=== PATIENT | male | born 1985 | race Caucasian/White ===

== ENCOUNTER 2022-08-14 18:26 | Emergency (ER) | payer OTHER ==
--- NOTE | 2022-08-14 19:56 | Ultrasound Report ---
PROCEDURE: Duplex Ext Veins Right INDICATIONS: Concerned for clot, Right thigh pain and numbness TECHNIQUE: Real-time imaging, as well as color and pulse Doppler interrogation, were performed of the lower extr emity deep veins from the inguinal ligament to the popliteal fossa. COMPARISON: None. FINDINGS: The deep veins are normally compressible, and free of intraluminal thrombus. Color and pu lse Doppler demonstrate normal phasic intraluminal flow. There is normal augmentation response to di stal compression maneuver. IMPRESSION: No sonographic evidence of deep venous thrombosis in the right lower extremity. Reviewed by: Duy Dudley MD on 08/14/2022 7:55 PM PDT Approved by: Duy Dudley MD on 08/14/2022 7:55 PM PDT Station ID: [id number]
[2022-08-14 20:14] LABS: BASOPHILS # (AUTO) 0.1 10^3/uL (0.0-0.1); BASOPHILS % (AUTO) 1.3 %; HCT - HEMATOCRIT 46.3 % (42.0-52.0); HGB - HEMOGLOBIN 15.6 g/dL (14.0-18.0); LYMPHOCYTES # (AUTO) 1.8 10^3/uL (1.5-3.5); LYMPHOCYTES % (AUTO) 45.1 %; MEAN CORPUSCULAR HGB CONC 33.7 g/dL (32.0-36.0); MEAN CORPUSCULAR VOLUME 100.9 fL (80.0-94.0); MEAN PLATELET VOLUME 8.4 fL (7.4-11.4); MONOCYTES # (AUTO) 0.3 10^3/uL (0.0-1.0); MONOCYTES % (AUTO) 8.2 %; NEUTROPHILS # (AUTO) 1.7 10^3/uL (1.5-6.6); NEUTROPHILS % (AUTO) 44.1 %; PLT - PLATELET COUNT 234 10^3/uL (130-450); RED BLOOD COUNT 4.59 10^6/uL (4.70-6.10); RED CELL DISTRIBUTION WIDTH 12.9 % (12.0-15.0); WHITE BLOOD COUNT 3.9 x10^3/uL (4.8-10.8)
[2022-08-14 20:31] LABS: ALBUMIN 4.5 g/dL (3.2-5.5); ALBUMIN/GLOBULIN RATIO 1.4 (1.0-2.2); ALKALINE PHOSPHATASE 63 IU/L (42-121); ALT ALANINE AMINOTRANSFERASE 202 IU/L (10-60); AST ASPARTATE AMINOTRANSFERASE 158 IU/L (10-42); BILIRUBIN,TOTAL 0.5 mg/dL (0.2-1.0); BUN - BLOOD UREA NITROGEN 8 mg/dL (6-20); CALCIUM 8.8 mg/dL (8.5-10.3); CARBON DIOXIDE - CO2 28 mmol/L (21-32); CHLORIDE 106 mmol/L (101-111); CK- CREATINE KINASE 266 IU/L (22-269); CREATININE 0.8 mg/dL (0.6-1.2); CRP - C-REACTIVE PROTEIN < 1.0 mg/dL (0-1.0); GFR - MDRD 108 (>89); GLUCOSE 97 mg/dL (70-100); POTASSIUM 3.8 mmol/L (3.5-5.0); SODIUM 145 mmol/L (135-145); TOTAL PROTEIN 7.8 g/dL (6.7-8.2)
--- NOTE | 2022-08-14 20:48 | XRAY Report ---
PROCEDURE: Femur 2V RT INDICATIONS: R thigh pain TECHNIQUE: 4 views of the femur were acquired. COMPARISON: None. FINDINGS: Bones: No fractures or dislocations. No suspicious bony lesions. Soft tissues: No suspicious soft tissue calcifications or masses. IMPRESSION: 1. No acute bony abnormality. Reviewed by: Jeffrey Conrad MD on 08/14/2022 8:47 PM PDT Approved by: Jeffrey Conrad MD on 08/14/2022 8:47 PM PDT Station ID: [id number]
[2022-08-14] MEDS ORDERED: KETOROLAC 60 MG/2 ML VIAL IM STA (21:26)
[2022-08-14] MEDS ORDERED: DEXAMETHASONE 10 MG/ML VIAL PO STA (21:26)
--- NOTE | 2022-08-14 21:29 | ED Physician Documentation ---
History of Present Illness - Stated complaint Stated Complaint: BLOOD CLOT? 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 He complains of 1 to 2 weeks of right anterior/medial thigh pain/numbness. Nothing seems to make it better or worse. No swelling. No skin changes. He denies any back pain. No loss of bowel or bladder control. Does not use any IV drugs. No fever. No trauma. Nothing seems to make it better or worse. Patient states there is a family histo ry of blood clots and he is concerned about DVT Review of Systems Constitutional: denies: Fever, Chills GI: denies: Vomiting, Diarrhea : denies: Incontinent Skin: denies: Rash PD PAST MEDICAL HISTORY - Past Medical History Past Medical History: No - Past Surgical History Past Surgical History: No - Present Medications Home Medications: Ambulatory Orders Medication Instructions Recorded Confirmed No Known Home Medications 08/14/22 08/14/22 - Allergies Allergies/Adverse Reactions: Allergies Allergy/AdvReac Type Severity Reaction Status Date / Time hydrocodone AdvReac Itching Verified 08/14/22 18:32 - Living Situation Living Arrangement: reports: At home - Social History Does the pt have substance abuse?: No PD ED PE NORMAL - Vitals Vital signs reviewed: Yes - General General: Alert and oriented X 3, No acute distress - HEENT HEENT: Moist mucous membranes - Neck Neck: Supple, no meningeal sign - Cardiac Cardiac: RRR - Respiratory Respiratory: No respiratory distress, Clear bilaterally - Abdomen Abdomen: Soft, Non tender, Non distended - Back Back: No spinal TTP (No midline tenderness to palpation or percussion. No step- off or deformity) - Derm Derm: Warm and dry - Extremities Extremities: Other (Right leg - There is decrease sensation over the anterior aspect of the mid thigh. No skin changes. No deformity. Full range of motion of the hip and knee without pain.) - Neuro Neuro: Alert and oriented X 3 Results - Vitals Vitals: Vital Signs - 24 hr 08/14/22 08/14/22 08/14/22 18:28 20:52 21:47 Temperature 36.7 C 36.9 C Heart Rate 104 H 80 80 Respiratory 16 13 16 Rate Blood Pressure 161/113 H 129/89 H 142/90 H O2 Saturation 97 96 100 Oxygen O2 Source Room air - Labs Labs: Laboratory Tests 08/14/22 08/14/22 08/14/22 20:10 20:10 20:10 WBC 3.9 L RBC 4.59 L Hgb 15.6 Hct 46.3 MCV 100.9 H MCH 34.0 H MCHC 33.7 RDW 12.9 Plt Count 234 MPV 8.4 Neut # (Auto) 1.7 Lymph # (Auto) 1.8 [place] # (Auto) 0.3 Eos # (Auto) 0.0 Baso # (Auto) 0.1 Absolute Nucleated RBC 0.00 Nucleated RBC % 0.0 ESR 2 Sodium 145 Potassium 3.8 Chloride 106 Carbon Dioxide 28 Anion Gap 11.0 BUN 8 Creatinine 0.8 Estimated GFR (MDRD) 108 Glucose 97 Calcium 8.8 Total Bilirubin 0.5 AST 158 H ALT 202 H Alkaline Phosphatase 63 Total Creatine Kinase 266 C-Reactive Protein < 1.0 Total Protein 7.8 Albumin 4.5 Globulin 3.3 Albumin/Globulin Ratio 1.4 - Rads (name of study) Right lower extremity ultrasound Relevant Findings:: Final report received, See rad report Right femur x-ray Relevant Findings:: Final report received, See rad report PD Medical Decision Making - ED course Complexity details: reviewed results, re-evaluated patient, considered differential, d/w patient ED course: Unclear etiology of the patient's symptoms. No acute findings on duplex ultrasound or a right femur x-ray. CBC, chemistries and inflammatory markers, sed rate, CRP are negative. CK is normal. Does have mild elevation of his AST/ALT. He will follow-up with his doctor regarding this. I suspect that his symptoms are likely due to sciatica. Given a dose of Toradol and dexamethasone here. 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 We will have him follow-up with his PCM and likely obtain an MRI of the lumbar spine. No evidence of cauda equina, epidural abscess. Patient counseled regarding signs and symptoms for which I believe and urgent re-evaluation would be necessary. Patient with good understanding of and agreement to plan and is comfortable going home at this time This document was made in part using voice recognition software. While efforts are made to proofread this document, sound alike and grammatical errors may occur. Patient is able to ambulate here. No indication for emergent MRI at this time Departure - Departure Disposition: 01 Home, Self Care Clinical Impression: Paresthesia and pain of right extremity, LFT elevation Condition: Good Instructions: ED Sciatica, ED Paraesthesias Follow-Up: URSULA ZAVALA, [Primary Care Provider] - Within 3 Days Comments: [place] 3 days. Your ultrasound, x-ray and lab work are all normal today. Your inflammatory markers are negative. Your muscle breakdown test, creatine kinase, is normal. You do have a mild elevation of your liver function test, AST/ALT. This can be followed up with your doctor. Your symptoms seem to be consistent with nerve pain, this is likely coming from your sciatic nerve. Recommend that you have an MRI of your lumbar spine with your doctor. Please return if you worsen. You were given a dose of Toradol and dexamethasone tonight Discharge Date/Time: 08/14/22 21:47
[2022-08-14 21:49] VITALS: BP 142/90
== END 2022-08-14 21:47 | disposition home or self-care (01) ==
LOC: ED 18:26
DX: R20.2 Paresthesia of skin (principal); R74.01 Elevation of levels of liver transaminase levels
CPT/HCPCS: 36415; 80053; 82550; 85025; 85651; 86140; 96372; 99284

== ENCOUNTER 2023-01-28 13:39 | Outpatient (CLI) | payer OTHER | END 2023-01-28 23:59 | disposition critical access hospital (66) | LOC: EMS 13:39 | DX: R20.0 Anesthesia of skin (principal); R05.9 Cough, unspecified; R00.0 Tachycardia, unspecified | CPT/HCPCS: A0425; A0429 ==

== ENCOUNTER 2023-01-28 13:57 | Emergency (ER) | payer OTHER ==
[2023-01-28] MEDS ORDERED: predniSONE 20 MG TABLET PO STA (14:20)
--- NOTE | 2023-01-28 14:23 | ED Physician Documentation ---
History of Present Illness - Stated complaint Stated Complaint: RT LEG NUMBNESS - Chief complaint Chief Complaint: Ext Problem - History obtained from History obtained from: Patient - History of Present Illness Pain level max: 5 Pain level now: 5 - Additonal information Additional information: Patient is a 37-year-old male who presents to the emergency department stating that for about the past month he has had numbness in the right leg, he states it starts on the outside of the leg, wraps around to the front and ends at his great toe. He is also complaining of some right-sided low back pain as well. No loss of bowel or bladder control. 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 He states that his PCM told him to "rest". He states he has not had any imaging performed or other studies performed. No fevers. No chills. No swelling. Review of Systems Constitutional: denies: Fever, Chills Respiratory: denies: Cough GI: denies: Vomiting, Constipation, Diarrhea : denies: Unable to Void, Incontinent Skin: denies: Rash Musculoskeletal: denies: Neck pain PD PAST MEDICAL HISTORY - Past Medical History Past Medical History: No - Past Surgical History Past Surgical History: No - Present Medications Home Medications: Ambulatory Orders Medication Instructions Recorded Confirmed Meloxicam [Mobic] 7.5 mg PO BID PRN #20 tablet 01/28/23 methylPREDNISolone [Medrol] 4 mg PO DAILY #1 tab 01/28/23 - Allergies Allergies/Adverse Reactions: Allergies Allergy/AdvReac Type Severity Reaction Status Date / Time hydrocodone AdvReac Itching Verified 01/28/23 14:08 - Social History Does the pt have substance abuse?: No PD ED PE NORMAL - Vitals Vital signs reviewed: Yes - General General: Alert and oriented X 3, No acute distress - HEENT HEENT: PERRL, Moist mucous membranes - Neck Neck: Supple, no meningeal sign - Cardiac Cardiac: RRR, Strong equal pulses - Respiratory Respiratory: No respiratory distress, Clear bilaterally - Abdomen Abdomen: Soft, Non tender, Non distended - Back Back: No spinal TTP (No midline tenderness to palpation or percussion. No step- off or deformity.) - Derm Derm: Warm and dry - Extremities Extremities: Other (Patient has decreased sensation in the L4-L5 dermatomes of the R leg. Otherwise there is normal sensation throughout the leg.) - Neuro Neuro: Alert and oriented X 3, No motor deficit, Other (Normal bilateral lower extremity patellar and ankle jerk reflexes. Normal great toe extension bilaterally. no saddle anesthesia) - Psych Psych: Normal mood, Normal affect Results - Vitals Vitals: Vital Signs - 24 hr 01/28/23 01/28/23 14:03 14:32 Temperature 37.0 C Heart Rate 108 H 91 Respiratory 18 15 Rate Blood Pressure 162/113 H 155/99 H O2 Saturation 95 98 Oxygen O2 Source Room air PD Medical Decision Making - ED course Complexity details: considered differential (No cauda equina, no spinal epidural abscess, no fracture, no aortic dissection or evidence of aneursym rupture), d/w patient ED course: 37-year-old male with mild right-sided back pain ongoing for the past month. 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 He is complaining of numbness in the L4-L5 dermatome of the right leg. The leg is otherwise neurovascularly intact and does not have any decrease sensation. This is consistent with a likely herniated disc that is causing impingement of the nerve root. MRI is not available here today. No evidence of cauda equina, epidural abscess. No indication for emergent neuroimaging. Will place on steroids and anti-inflammatories for home. We will [place] and further care. Patient counseled regarding signs and symptoms for which I believe and urgent re-evaluation would be necessary. Patient with good understanding of and agreement to plan and is comfortable going home at this time This document was made in part using voice recognition software. While efforts are made to proofread this document, sound alike and grammatical errors may occur. Departure - Departure Disposition: 01 Home, Self Care Clinical Impression: Lumbar radiculopathy Condition: Good Instructions: ED Sciatica Follow-Up: OLGA Mathew [Provider Group] - Within 1 week Prescriptions: methylPREDNISolone [Medrol] 4 mg PO DAILY #1 tab Meloxicam [Mobic] 7.5 mg PO BID PRN #20 tablet PRN Reason: Pain Comments: You have decreased sensation in the L4-L5 dermatome over your right leg. This is likely due to a pinched nerve in your back. You likely have a herniated disc irritating the nerve. There is recommended that you have a lumbar spine MRI [place]. We will place you on steroids to decrease the inflammation, this should help with the numbness. After the MRI, your PCM may want to refer you to physical therapy or to a information assurance specialist for further care. Your prescriptions were sent to the [facility] pharmacy. Forms: PCP List Discharge Date/Time: 01/28/23 14:32
[2023-01-28 14:32] VITALS: BP 155/99; O2SAT 98
== END 2023-01-28 14:32 | disposition home or self-care (01) ==
LOC: EDUNIT# → ED 13:57
DX: M54.16 Radiculopathy, lumbar region (principal)
CPT/HCPCS: 99283; J7512

== ENCOUNTER 2023-06-11 14:30 | Outpatient (CLI) | payer OTHER ==
[2023-06-11 18:43] LABS: BASOPHILS % (AUTO) 0.5 %; HCT - HEMATOCRIT 44.3 % (42.0-52.0); HGB - HEMOGLOBIN 15.6 g/dL (14.0-18.0); LYMPHOCYTES # (AUTO) 0.7 10^3/uL (1.5-3.5); LYMPHOCYTES % (AUTO) 9.3 %; MEAN CORPUSCULAR HEMOGLOBIN 35.1 pg (27.0-31.0); MEAN CORPUSCULAR HGB CONC 35.2 g/dL (32.0-36.0); MEAN CORPUSCULAR VOLUME 99.6 fL (80.0-94.0); MEAN PLATELET VOLUME 9.4 fL (7.4-11.4); MONOCYTES # (AUTO) 0.7 10^3/uL (0.0-1.0); MONOCYTES % (AUTO) 8.3 %; NEUTROPHILS # (AUTO) 6.4 10^3/uL (1.5-6.6); NEUTROPHILS % (AUTO) 81.6 %; PLT - PLATELET COUNT 358 10^3/uL (130-450); RED BLOOD COUNT 4.45 10^6/uL (4.70-6.10); WHITE BLOOD COUNT 7.8 x10^3/uL (4.8-10.8)
[2023-06-11 19:25] LABS: BILIRUBIN,URINE MODERATE (NEGATIVE); GLUCOSE, URINE (UA) NEGATIVE (NEGATIVE); KETONES,URINE (UA) 40 mg/dL (NEGATIVE); LEUKOCYTE ESTERASE, URINE NEGATIVE (NEGATIVE); NITRITE,URINE NEGATIVE (NEGATIVE); OCCULT BLOOD,URINE NEGATIVE (NEGATIVE); PROTEIN,URINE 100 mg/dL (NEGATIVE); UROBILINOGEN,URINE 0.2 (NORMAL) E.U./dL (NORMAL)
[2023-06-11 19:49] LABS: ALBUMIN 4.8 g/dL (3.2-5.5); ALBUMIN/GLOBULIN RATIO 1.3 (1.0-2.2); BILIRUBIN,TOTAL 1.7 mg/dL (0.2-1.0); CALCIUM 10.6 mg/dL (8.5-10.3); CREATININE 0.7 mg/dL (0.6-1.3); POTASSIUM 4.6 mmol/L (3.5-4.5); TOTAL PROTEIN 8.4 g/dL (6.4-8.9)
[2023-06-11 19:56] LABS: CLARITY,URINE HAZY (CLEAR)
[2023-06-11 20:21] LABS: RBC,URINE 0-5 /HPF (0-5); WBC,URINE 0-3 /HPF (0-3)
[2023-06-11 20:22] LABS: BACTERIA,URINE Few /HPF (None Seen); SQUAMOUS EPITHELIAL CELL,UR NONE SEEN (<= Few)
== END 2023-06-11 14:45 | disposition home or self-care (01) ==
LOC: LAB.N 14:30
PROVIDERS: ATTEND Specialist
DX: R10.9 Unspecified abdominal pain (principal)
CPT/HCPCS: 36415; 80053; 81001; 82150; 83690; 85025; 87086

== ENCOUNTER 2023-06-14 14:58 | Outpatient (CLI) | payer OTHER ==
[2023-06-14 18:04] LABS: ALBUMIN 4.5 g/dL (3.2-5.5); ALBUMIN/GLOBULIN RATIO 1.5 (1.0-2.2); BILIRUBIN,TOTAL 0.7 mg/dL (0.2-1.0); CALCIUM 9.8 mg/dL (8.5-10.3); CREATININE 0.7 mg/dL (0.6-1.3); POTASSIUM 3.8 mmol/L (3.5-4.5); TOTAL PROTEIN 7.6 g/dL (6.4-8.9)
[2023-06-15 03:09] LABS: HBsAG SCREEN Negative (Negative); HCV AB Non Reactive (Non Reactive); HEPATITIS B CORE IGM AB Negative (Negative)
== END 2023-06-14 14:59 | disposition home or self-care (01) ==
LOC: LAB.N 14:58
PROVIDERS: ATTEND Family Medicine
DX: R79.89 Other specified abnormal findings of blood chemistry (principal)
CPT/HCPCS: 36415; 80053; 80074

== ENCOUNTER 2023-06-17 13:15 | Outpatient (CLI) | payer OTHER ==
[2023-06-17 18:14] LABS: BASOPHILS % (AUTO) 0.6 %; EOSINOPHILS # (AUTO) 0.1 10^3/uL (0.0-0.7); EOSINOPHILS % (AUTO) 0.8 %; HGB - HEMOGLOBIN 14.3 g/dL (14.0-18.0); LYMPHOCYTES % (AUTO) 15.2 %; MEAN CORPUSCULAR HEMOGLOBIN 33.5 pg (27.0-31.0); MEAN CORPUSCULAR HGB CONC 31.8 g/dL (32.0-36.0); MEAN CORPUSCULAR VOLUME 105.4 fL (80.0-94.0); MEAN PLATELET VOLUME 9.7 fL (7.4-11.4); MONOCYTES # (AUTO) 0.8 10^3/uL (0.0-1.0); MONOCYTES % (AUTO) 12.3 %; NEUTROPHILS # (AUTO) 4.6 10^3/uL (1.5-6.6); NEUTROPHILS % (AUTO) 70.8 %; PLT - PLATELET COUNT 288 10^3/uL (130-450); RED BLOOD COUNT 4.27 10^6/uL (4.70-6.10); RED CELL DISTRIBUTION WIDTH 12.2 % (12.0-15.0); WHITE BLOOD COUNT 6.5 x10^3/uL (4.8-10.8)
[2023-06-17 18:36] LABS: ALBUMIN 4.5 g/dL (3.2-5.5); ALBUMIN/GLOBULIN RATIO 1.2 (1.0-2.2); BILIRUBIN,TOTAL 0.7 mg/dL (0.2-1.0); CALCIUM 9.9 mg/dL (8.5-10.3); CREATININE 0.6 mg/dL (0.6-1.3); POTASSIUM 4.3 mmol/L (3.5-4.5); TOTAL PROTEIN 8.2 g/dL (6.4-8.9)
== END 2023-06-17 13:30 | disposition home or self-care (01) ==
LOC: LAB.N 13:15
PROVIDERS: ATTEND Physician Assistant
DX: R79.89 Other specified abnormal findings of blood chemistry (principal)
CPT/HCPCS: 36415; 80053; 83690; 85025

== ENCOUNTER 2023-08-27 07:54 | Outpatient (CLI) | payer OTHER ==
--- NOTE | 2023-08-27 11:31 | MRI Report ---
PROCEDURE: Cervical Spine WO INDICATIONS: L SIDED RADICULOPATHY TECHNIQUE: Noncontrast sagittal T1 spin echo and T2 fast spin echo, sagittal STIR, foraminal oblique sagittal T2 fast spin echo, and axial gradient echo or T2 fast spin echo through the cervical spine. COMPARISON: None. FINDINGS: Image quality: Excellent. Alignment and Curvature: Trace retrolisthesis of C4 on C5. Bone Marrow: Marrow demonstrates normal overall signal. Spinal Cord: Visualized spinal cord has normal size and signal. No cerebellar tonsillar herniation. Paraspinous Soft Tissues: No paravertebral masses. Prevertebral soft tissues are normal in thicknes s. C2-C3: No canal stenosis or foraminal stenosis. C3-C4: Disc bulge without canal stenosis. Bilateral mild uncovertebral joint hypertrophy. No signif icant foraminal narrowing. C4-C5: Disc bulge. No canal stenosis. No significant foraminal stenosis. C5-C6: There is mild disc height loss. There is diffuse posterior disc plus osteophyte with prominen t bilateral uncovertebral joint hypertrophy. Prominent right foraminal osteophyte off the uncovertebr al joint results in severe right foraminal narrowing and right foraminal C6 nerve root impingement. T here is moderate left foraminal narrowing with flattening deformity on the exiting left C6 nerve root . C6-C7: Disc bulge. No canal stenosis. Left uncovertebral joint hypertrophy. Mild to moderate left fo raminal stenosis. C7-T1: Diffuse disc bulge. No canal stenosis. No foraminal stenosis. IMPRESSION: 1. There are multilevel disc bulges and there is multilevel uncovertebral joint hypertrophy. 2. No central canal stenosis. 3. At C5-C6, there is severe right foraminal narrowing and moderate left foraminal narrowing. There i s mild to moderate left foraminal narrowing at C6-C7. Reviewed by: Niraj Stratton MD on 08/27/2023 11:29 AM PDT Approved by: Niraj Stratton MD on 08/27/2023 11:29 AM PDT Station ID: [id number]
== END 2023-08-27 07:55 | disposition home or self-care (01) ==
LOC: DI 07:54
PROVIDERS: ATTEND General Practice
DX: M50.11 Cervical disc disorder with radiculopathy, high cervical region (principal); M48.02 Spinal stenosis, cervical region; M47.22 Other spondylosis with radiculopathy, cervical region

== ENCOUNTER 2023-08-30 19:19 | Outpatient (CLI) | payer OTHER | END 2023-08-30 23:59 | disposition critical access hospital (66) | LOC: EMS 19:19 | DX: M25.512 Pain in left shoulder (principal); R20.0 Anesthesia of skin | CPT/HCPCS: A0425; A0429 ==

== ENCOUNTER 2023-08-30 19:41 | Emergency (ER) | payer OTHER ==
--- NOTE | 2023-08-30 19:49 | ED Physician Documentation ---
PD HPI UPPER EXT INJURY - Stated complaint Stated Complaint: L SHOULDER PX - Chief complaint Chief Complaint: Ext Problem - Additonal information Additional information: 38 year old male presents to the ER via ambulance for left shoulder pain. Pt injured shoulder about a month ago cleaning his garage, he thinks he may have dislocated it and then it self reduced. He had an MRI this week and it showed cervical impingement and the plan is to do steroid injections. Whoever gave him the results informed him if the pain gets out of hand to present to ER for pain control. Pt denies any new injury to shoulder but feels like the pain at his ho me became so severe that he was unable to bare it anymore. PD PAST MEDICAL HISTORY - Past Surgical History Past Surgical History: No - Present Medications Home Medications: Ambulatory Orders Medication Instructions Recorded Confirmed Meloxicam [Mobic] 7.5 mg PO BID PRN #20 tablet 01/28/23 methylPREDNISolone [Medrol] 4 mg PO DAILY #1 tab 01/28/23 - Allergies Allergies/Adverse Reactions: Allergies Allergy/AdvReac Type Severity Reaction Status Date / Time hydrocodone AdvReac Itching Verified 08/30/23 19:53 - Social History Does the pt have substance abuse?: No PD ED PE NORMAL - Vitals Vital signs reviewed: Yes - General General: Alert and oriented X 3, No acute distress, Well developed/nourished - HEENT HEENT: Atraumatic - Neck Neck: No bony TTP, No adenopathy - Respiratory Respiratory: No respiratory distress, Clear bilaterally - Back Back: No spinal TTP - Derm Derm: Normal color, Warm and dry, No rash - Extremities Extremities: No deformity, No edema, Other (limited ROM to left shoulder d/t tenderness) Results - Vitals Vitals: Vital Signs - 24 hr 08/30/23 19:40 Temperature 36.2 C L Heart Rate 113 H Respiratory 18 Rate Blood Pressure 155/101 H O2 Saturation 98 Oxygen O2 Source Room air PD Medical Decision Making - ED course ED course: Patient presents with severe left shoulder pain. Because MRI has just been completed he has had no injury or trauma since then I decided to hold off on any imaging although it was considered. Patient received 1 dose of IV and ketorolac and 4 mg of tizanidine and symptoms had completely resolved. Patient said that he was not experiencing any pain and was feeling quite loopy. He had his father with him who drove him home. Patient was asked if he wanted a prescription outpatient and he said no he did not want any additional medicat ions that he had follow-up with his primary care provider. Patient said that he did not want to be here any longer for further workup and wanted to just be at home in the comfort of his bed. He is safe for discharge at this time. I took the time to answer all questions to him as well as his father. Departure - Departure Disposition: Home, Self Care Clinical Impression: Left shoulder pain Qualifiers: Chronicity: acute Qualified Code(s): M25.512 - Pain in left shoulder Condition: Stable Instructions: Shoulder Probs Comments: Thank you for trusting us with your care. We have given you a one-time dose of muscle relaxer called tizanidine. You seem to be in significant improvement of pain. We also gave you a one-time dose of Toradol injection. I would alternate between Tylenol ibuprofen for pain and discomfort of your left shoulder and follow-up with your primary care provider for any prescriptions outpatient that could be warranted. We offered you a prescription here but you declined. Forms: PCP List Discharge Date/Time: 08/30/23 21:04
[2023-08-30 20:00] VITALS: BP 155/101; O2SAT 98
[2023-08-30] MEDS: KETOROLAC 30 MG/ML VIAL IVP STA (20:27)
[2023-08-30] MEDS: tiZANidine 4 MG TABLET PO STA (20:27)
== END 2023-08-30 21:04 | disposition home or self-care (01) ==
LOC: EDUNIT# → EDBD → ED 19:41
DX: M25.512 Pain in left shoulder (principal)
CPT/HCPCS: 96374; 99283; A9270

== ENCOUNTER 2023-08-31 19:32 | Outpatient (CLI) | payer OTHER | END 2023-08-31 23:59 | disposition critical access hospital (66) | LOC: EMS 19:32 | DX: M25.512 Pain in left shoulder (principal); M79.602 Pain in left arm | CPT/HCPCS: A0425; A0429 ==

== ENCOUNTER 2023-08-31 19:51 | Emergency (ER) | payer OTHER ==
[2023-08-31] MEDS: IBUPROFEN 600 MG TABLET PO STA (20:20)
[2023-08-31] MEDS: ACETAMINOPHEN 325 MG TABLET PO STA (20:20)
--- NOTE | 2023-08-31 20:21 | ED Physician Documentation ---
PD HPI UPPER EXT INJURY - Stated complaint Stated Complaint: L SHOULDER PX - Chief complaint Chief Complaint: Ext Problem - Additonal information Additional information: 38-year-old male presents back to the emergency department via EMS for left shoulder pain. Patient was seen and evaluated here yesterday in the emergency department for same complaint also brought in by EMS as well. Per EMS patient was standing outside with a jacket on waiting for ambulance to bring him into the emergency department. EMS asked him why he was not able to drive himself and then he said that he was having pain in his left shoulder prohibiting him from driving. Yesterday prior to discharge patient was seen ambulating in hallway and appeared confused he said that his pain had fully resolved and he wanted to discharge home. He was offered an outpatient prescription to help with pain management and he declined and said he just wanted to leave and was brought home with his neighbor. Today are patient reports similar left shoulder pain I asked him if he is taking anything at home for this and he says no because sometimes naproxen makes his stomach feel upset. 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 PD PAST MEDICAL HISTORY - Past Medical History Musculoskeletal: Other - Past Surgical History Past Surgical History: No Ortho: ACL reconstruction, Other - Present Medications Home Medications: Ambulatory Orders Medication Instructions Recorded Confirmed No Known Home Medications 08/31/23 08/31/23 - Allergies Allergies/Adverse Reactions: Allergies Allergy/AdvReac Type Severity Reaction Status Date / Time hydrocodone AdvReac Itching Verified 08/31/23 20:02 - Social History Does the pt smoke?: No Smoking Status: Never smoker Does the pt drink ETOH?: No Does the pt have substance abuse?: No - Immunizations Immunizations are current?: Yes - POLST Patient has POLST: No PD ED PE NORMAL - Vitals Vital signs reviewed: Yes - General General: Alert and oriented X 3, No acute distress, Well developed/nourished - HEENT HEENT: Atraumatic - Neck Neck: Supple, no meningeal sign, No bony TTP - Back Back: No spinal TTP - Derm Derm: Other (flushed face) - Extremities Extremities: No deformity, No edema (Left shoulder tenderness with palpation to anterior region.), Other - Psych Psych: Other (poor eye contact) Results - Vitals Vitals: Vital Signs - 24 hr 08/31/23 08/31/23 19:59 21:26 Temperature 36.9 C Heart Rate 98 106 H Respiratory 16 16 Rate Blood Pressure 147/92 H 148/96 H O2 Saturation 98 100 Oxygen O2 Source Room air - Labs Labs: Laboratory Tests 08/31/23 08/31/23 20:17 20:17 WBC 3.1 L RBC 4.51 L Hgb 15.1 Hct 46.1 MCV 102.2 H MCH 33.5 H MCHC 32.8 RDW 12.6 Plt Count 210 MPV 8.3 Neut # (Auto) 2.0 Lymph # (Auto) 0.8 L [place] # (Auto) 0.2 Eos # (Auto) 0.0 Baso # (Auto) 0.1 Absolute Nucleated RBC 0.00 Nucleated RBC % 0.0 Ethyl Alcohol 382.9 PD Medical Decision Making - ED course ED course: 39 male presents back to the emergency department for concerns of ongoing left shoulder pain. When I ordered imaging for repeat evaluation patient said that he did not feel imaging was warranted given that now his pain was in his neck. His story continues to consistently change and given how he responded yesterday to the mild dose of tizanidine and I was concerned about giving patient an additional muscle relaxer. An EtOH level was complete given patient's behavior and EtOH level came back at 382. When I informed the patient that I was concerned about his alcohol level patient says that he has been drinking alcohol to cope with the pain. Patient said that he did not want narcotics for pain and he also did not want a muscle relaxer I told him that he could have some Tylenol and ibuprofen but this was also something that he could take at home. Patient was given Tylenol ibuprofen here in the emergency department which did alleviate the pain he was able to move shoulder prior to discharge. I offered the patient additional resources to help with his alcohol dependence and he declined. I strongly encouraged the patient to reach out to the [employer] [facility] for support for his alcohol dependence. Patient was maintaining airway he appears to be decisional he left with his neighbor who gave him a ride home patient was told to follow-up with [facility] for ongoing pain of his left shoulder. Patient was informed if he changes his mind and would like support coming off alcohol the emergency department is always here all questions answered safe for discharge. Departure - Departure Disposition: Home, Self Care Clinical Impression: Left shoulder pain Qualifiers: Chronicity: chronic Qualified Code(s): M25.512 - Pain in left shoulder Elevated ETOH level Qualifiers: Blood alcohol level: 240 mg/100 ml or more Qualified Code(s): Y90.8 - Blood alcohol level of 240 mg/100 ml or more Instructions: Abuse Alcohol [facility] [employer], Addiction Alcohol, ED Alcohol Abuse Comments: Aly I am very worried about your alcohol level. As we discussed I would really strongly reach out to the [facility] for support with helping to come off alcohol. Unfortunately given how sensitive he responded to tizanidine yesterday I cannot prescribe narcotics to you. You can take Tylenol ibuprofen for pain and discomfort you can take 650 mg of Tylenol and 600 mg of ibuprofen for pain and discomfort every 6 hours. Please follow-up with the [facility] about a steroid injection to your shoulder and for further evaluation. Whenever you are ready to detox from alcohol we are here for you. Forms: PCP List Discharge Date/Time: 08/31/23 21:26
[2023-08-31 20:27] LABS: BASOPHILS # (AUTO) 0.1 10^3/uL (0.0-0.1); BASOPHILS % (AUTO) 1.6 %; EOSINOPHILS % (AUTO) 0.3 %; HCT - HEMATOCRIT 46.1 % (42.0-52.0); HGB - HEMOGLOBIN 15.1 g/dL (14.0-18.0); LYMPHOCYTES # (AUTO) 0.8 10^3/uL (1.5-3.5); LYMPHOCYTES % (AUTO) 26.7 %; MEAN CORPUSCULAR HEMOGLOBIN 33.5 pg (27.0-31.0); MEAN CORPUSCULAR HGB CONC 32.8 g/dL (32.0-36.0); MEAN CORPUSCULAR VOLUME 102.2 fL (80.0-94.0); MEAN PLATELET VOLUME 8.3 fL (7.4-11.4); MONOCYTES # (AUTO) 0.2 10^3/uL (0.0-1.0); MONOCYTES % (AUTO) 6.5 %; NEUTROPHILS % (AUTO) 64.6 %; PLT - PLATELET COUNT 210 10^3/uL (130-450); RED BLOOD COUNT 4.51 10^6/uL (4.70-6.10); RED CELL DISTRIBUTION WIDTH 12.6 % (12.0-15.0); WHITE BLOOD COUNT 3.1 x10^3/uL (4.8-10.8)
[2023-08-31 21:32] VITALS: BP 148/96; O2SAT 100
== END 2023-08-31 21:26 | disposition home or self-care (01) ==
LOC: EDUNIT# → ED 19:51
DX: M25.512 Pain in left shoulder (principal); Y90.8 Blood alcohol level of 240 mg/100 ml or more
CPT/HCPCS: 36415; 82077; 85025; 99283; A9270